=== PATIENT | female | born 1980 | race African-American/Black ===

== ENCOUNTER 2018-01-17 08:43 | Emergency (ER) | payer OTHER ==
[~2018-01-17] VITALS: Ht 154.9 cm; Wt 80.7 kg
[2018-01-17 08:49] VITALS: BP 136/89
--- NOTE | 2018-01-17 08:54 | NUR ---
A 37 YO F BIB SELF W/ C/O LOWER BACK PAIN SINCE MONDAY. PT REPORTS THAT SHE WAS HELPING HER GRANDMOTHER MOVE FURNITURE THE DAY PRIOR TO THE PAIN STARTING. PT REPORTS SHE HAS BEEN TX W/ IBUPROFEN W/O EFFECTIVNESS. DENIES N/V/D/FEVER. AMBULATORY W/ STEADY GAIT. 10/17 PAIN IN LOWER BACK THAT IS SHARP AND NON RADIAITNG. ER NOTIFIED. WILL CONTINUE TO MONITOR. SAFETY PRECAUTIONS IMPLEMENTED.
[2018-01-17] MEDS ORDERED: KETOROLAC 60 MG/2 ML VIAL IM ONE (09:05)
[2018-01-17 09:40] VITALS: BP 136/89
== END 2018-01-17 09:40 | disposition home or self-care (01) ==
LOC: MED 08:43
DX: S20.212A Contusion of left front wall of thorax, initial encounter (principal); X50.0XXA Overexertion from strenuous movement or load, initial encounter; Y93.89 Activity, other specified; Y92.89 Other specified places as the place of occurrence of the external cause; Y99.8 Other external cause status
CPT/HCPCS: 71045; 81002; 81025; 96372; 99283; J1885; Q0092